=== PATIENT | male | born 1960 | race Two or more races ===

== ENCOUNTER 2017-05-02 15:51 | Outpatient (CLI) | payer OTHER | END 2017-05-02 17:00 | disposition home or self-care (01) | LOC: SONOGRAMA 15:51 | DX: I11.9 Hypertensive heart disease without heart failure (principal) ==

== ENCOUNTER 2017-05-02 15:55 | Outpatient (CLI) | payer OTHER | END 2017-05-02 17:00 | disposition home or self-care (01) | LOC: RAD 15:55 | DX: I11.9 Hypertensive heart disease without heart failure (principal) ==

== ENCOUNTER 2017-06-17 09:13 | Outpatient (CLI) | payer OTHER | END 2017-06-17 09:21 | disposition home or self-care (01) | LOC: TOM 09:13 | DX: J84.10 Pulmonary fibrosis, unspecified (principal); F17.200 Nicotine dependence, unspecified, uncomplicated ==

== ENCOUNTER 2019-05-04 08:03 | Outpatient (CLI) | payer OTHER | END 2019-05-04 08:09 | disposition home or self-care (01) | LOC: RAD 08:03 | DX: R31.29 Other microscopic hematuria (principal) ==

== ENCOUNTER 2020-12-10 10:58 | Emergency (ER) | payer OTHER ==
[~2020-12-10] VITALS: Ht 175.3 cm; Wt 87.1 kg
[2020-12-10] MEDS ORDERED: LOSARTAN POTAS100 MG PO (11:12)
[2020-12-10] MEDS ORDERED: FOLIC ACID0.8 M1 (11:12)
[2020-12-10] MEDS ORDERED: ADALAT CC60 MG PO (11:13)
[2020-12-10] MEDS ORDERED: CENTRUM SILVER1 EAC4 PO (11:13)
[2020-12-10] MEDS ORDERED: FORTAMET1000 MG PO (11:14)
[2020-12-10] MEDS ORDERED: GLIMEPIRIDE1 MG (11:14)
[2020-12-10] MEDS ORDERED: JANUVIA100 MG PO (11:14)
[2020-12-10] MEDS ORDERED: OMEGA 3 1,0001 EACH PO (11:14)
[2020-12-10] MEDS ORDERED: ADULT ASPIRIN81 MG PO (11:15)
[2020-12-10] MEDS ORDERED: TOPROL XL50 M1 PO (11:15)
[2020-12-10] MEDS ORDERED: HYDROCHLOROTHIA25 MG PO (11:16)
[2020-12-10] MEDS ORDERED: VITAMIN B-122500 MCG SL (11:16)
[2020-12-10] MEDS ORDERED: KAPVAY0.1 MG (11:16)
[2020-12-10] MEDS ORDERED: CIPRO500 MG PO (15:25)
== END 2020-12-10 15:42 | disposition home or self-care (01) ==
LOC: ER 10:58
DX: E11.622 Type 2 diabetes mellitus with other skin ulcer (principal); L97.828 Non-pressure chronic ulcer of other part of left lower leg with other specified severity; L03.116 Cellulitis of left lower limb; B96.89 Other specified bacterial agents as the cause of diseases classified elsewhere; B37.89 Other sites of candidiasis; Z79.84 Long term (current) use of oral hypoglycemic drugs

== ENCOUNTER 2021-01-21 07:17 | Outpatient (CLI) | payer OTHER ==
[~2021-01-21 07:17] MED LIST: ADALAT CC60 MG PO; ADULT ASPIRIN81 MG PO; CENTRUM SILVER1 EAC4 PO; CIPRO500 MG PO; FOLIC ACID0.8 M1; FORTAMET1000 MG PO; GLIMEPIRIDE1 MG; HYDROCHLOROTHIA25 MG PO; JANUVIA100 MG PO; KAPVAY0.1 MG; LOSARTAN POTAS100 MG PO; OMEGA 3 1,0001 EACH PO; TOPROL XL50 M1 PO; VITAMIN B-122500 MCG SL
== END 2021-01-21 07:19 | disposition home or self-care (01) ==
LOC: NUCLEAR 07:17
PROVIDERS: ATTEND Surgery
DX: I73.9 Peripheral vascular disease, unspecified (principal)

== ENCOUNTER 2023-05-05 08:45 | Outpatient (CLI) | payer OTHER | END 2023-05-05 08:51 | disposition home or self-care (01) | LOC: TOM 08:45 | PROVIDERS: ATTEND Internal Medicine | DX: D72.820 Lymphocytosis (symptomatic) (principal); C83.5 Lymphoblastic (diffuse) lymphoma ==

== ENCOUNTER 2023-06-15 07:59 | Outpatient (CLI) | payer OTHER | END 2023-06-15 08:00 | disposition home or self-care (01) | LOC: NUCLEAR 07:59 | PROVIDERS: ATTEND Internal Medicine Hematology & Oncology | DX: C80.1 Malignant (primary) neoplasm, unspecified (principal); R91.8 Other nonspecific abnormal finding of lung field | CPT/HCPCS: 78815; A9552 ==

== ENCOUNTER 2024-04-17 06:28 | Emergency (ER) | payer OTHER ==
[~2024-04-17] VITALS: Ht 165.1 cm; Wt 70.8 kg
[2024-04-17] MEDS ORDERED: NEURONTIN300 MG (06:39)
[2024-04-17] MEDS ORDERED: TRAMADOL HCL 50 MG TABLET PO STA (10:58)
== END 2024-04-17 11:28 | disposition home or self-care (01) ==
LOC: ER 06:30
DX: E11.40 Type 2 diabetes mellitus with diabetic neuropathy, unspecified (principal); I10 Essential (primary) hypertension; Z79.84 Long term (current) use of oral hypoglycemic drugs